=== PATIENT | female | born 1970 | race Caucasian/White ===

== ENCOUNTER 2025-03-29 13:19 | Outpatient (AMB) | payer BC, SELFPAY ==
[2025-03-29 13:35] VITALS: BP 144/80; PULSE 98; RESP 22; TEMP 36.8; O2SAT 98; BMI 20.9
--- NOTE | 2025-03-29 13:35 | AMB.GYNCLNOT ---
Vital Signs 03/29/25 13:35 Height 1.57 m Height Method Stated Weight 51.936 kg Weight Measurement Method Standing Scale BMI 20.9 BP 144/80 H Blood Pressure Source Automatic Cuff Blood Pressure Location Right Upper Arm Position Sitting Respiration 22 H Pulse 98 Pulse Source Monitor Temp 98.2 F Temp Source Oral Pulse Oximetry (%) 98 Oxygen Delivery Method Room Air Allergies/Home Meds Allergies & Medications Allergies No Known Allergies Allergy (Verified 03/29/25 13:36) Medication Reconciliation No Known Home Medications 03/29/25 [History Confirmed 03/29/25] Intake Visit Data Collection New Patient or Established: New Patient (never been to 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 1. Little interest or pleasure in doing things: not at all 2. Feeling down, depressed, or hopeless: not at all Total score: 0 PHQ-9 3. Trouble falling or staying asleep, or sleeping too much: Not at all 4. Feeling tired or having little energy: Not at all 5. Poor appetite or overeating: Not at all 6. Feeling bad about yourself - or that you are a failure or have let yourself or your family down: Not at all 7. Trouble concentrating on things, such as reading the newspaper or watching television: Not at all 8. Moving or speaking so slowly that other people could have noticed? - Or the opposite - being so fidgety or restless that you have been moving around a lot more than usual: not at all 9. Thoughts that you would be better off or of hurting yourself in some way: Not at all Total score: 0 Source: Developed by Drs. Derrell Kaba, Inessa Villareal, Sergei Mckee and colleagues, with an educational daniel from [employer]. Depression screen completed yes Social History Living Situation History Marital Status: Lives With: Family Housing: House Tobacco History Smoking Status: Never smoker Second Hand Smoke Exposure: No Alcohol History Alcohol Intake: Never Domestic Abuse History Do You Feel Safe at Home: Yes Office Procedures OB Clinic LOC & Office Proc's Nursing/Assessment Patient Status: Initial/New Patient OB Clinic Nursing Assessment: Medication Reconciliation, Update PMH in EMR and Vital Signs OB Clinic Coordination of Care: Complex Care and Chronic Disease 1-5, Consent,records obtained, informed consent, Education Simp Pt/Fam, Lab and Imaging orders, Results/Orders obtained and Staff clarify orders Miscellaneous Interventions: Breast Exam and Pelvic/Pap Smear Set up New Patient Charge New Patient Point Assignment: 1154 New Patient Point Charge: [employer] REPLACER Level 4 ([id number]) In Clinic Procedures Pap Smear: Yes Assessment & Plan Diagnosis / Problem List (1) Encounter for Routine Gynecological Examination: Qualifiers: Gynecological examination findings: abnormal findings ABSENT Qualified Code(s): Z01.419 - Encounter for gynecological examination (general) (routine) without abnormal findings (2) Perimenopause: Status: Acute Assessment and Plan: Check FSH and Estradiol now
== END 2025-03-29 14:42 | disposition home or self-care (01) ==
LOC: HODSOBC 13:19
PROVIDERS: Supervising Provider Obstetrics & Gynecology; Visit Provider Obstetrics & Gynecology
DX: Z01.411 Encounter for gynecological examination (general) (routine) with abnormal findings (principal); Z11.51 Encounter for screening for human papillomavirus (HPV); R92.30 Dense breasts, unspecified; N95.1 Menopausal and female climacteric states; R23.2 Flushing; R61 Generalized hyperhidrosis; E78.00 Pure hypercholesterolemia, unspecified; Z97.5 Presence of (intrauterine) contraceptive device; Z88.0 Allergy status to penicillin
CPT/HCPCS: 99204; Q0091; G0463

== ENCOUNTER → 2025-03-29 | Outpatient (CLI) | payer BC, SELFPAY ==
[2025-03-29 16:50] LABS: Follicle Stimulating Hormone 9.05 mIU/mL (See Note)
[2025-04-17 07:09] LABS: Estradiol, Free 4.88 pg/mL; Estradiol, Total 313 pg/mL
== END | disposition home or self-care (01) ==
LOC: COPL 15:12
PROVIDERS: Referring Provider Obstetrics & Gynecology; Visit Provider Obstetrics & Gynecology
DX: N95.1 Menopausal and female climacteric states (principal)
CPT/HCPCS: 36415; 82670; 82681; 83001

== ENCOUNTER 2025-06-07 10:58 | Outpatient (AMB) | payer BC, SELFPAY ==
--- NOTE | 2025-06-07 11:10 | AMB.GYNCLNOT ---
Allergies/Home Meds Allergies & Medications Allergies amoxicillin Allergy (Unknown, Verified 06/07/25 11:11) Hives cephalexin Allergy (Unknown, Verified 06/07/25 11:11) HIVE Medication Reconciliation No Known Home Medications 03/29/25 [History Confirmed 06/07/25] Intake Visit Data Collection New Patient or Established: New Patient (never been to [facility]) Reason for Visit:: LAB RESULTS Seen by Clinical Staff ONLY (RN/MA): No Do You Feel Safe at Home: Yes Authorities Contacted: N/A PCP or OBGYN visit in last 3 months: Yes Date of Last PCP or OBGYN visit: 03/29/25 Hx Now: No Are you currently on any form of Control: Yes (IUD MIRENA) Pain Present Currently: No Pain Scale Used: Lew-Valdes/Numerical Pain scale:: 0 Smoking Status Smoking Status: Never smoker For Telemed visit only Telemed Video/Phone Visit: Yes Verbal consent obtained for Telemed visit?: Yes Verbal Consent witness name: ROSAMARIA BOURNEREZ 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 1. Little interest or pleasure in doing things: not at all 2. Feeling down, depressed, or hopeless: not at all Total score: 0 PHQ-9 3. Trouble falling or staying asleep, or sleeping too much: Not at all 4. Feeling tired or having little energy: Not at all 5. Poor appetite or overeating: Not at all 6. Feeling bad about yourself - or that you are a failure or have let yourself or your family down: Not at all 7. Trouble concentrating on things, such as reading the newspaper or watching television: Not at all 8. Moving or speaking so slowly that other people could have noticed? - Or the opposite - being so fidgety or restless that you have been moving around a lot more than usual: not at all 9. Thoughts that you would be better off or of hurting yourself in some way: Not at all Total score: 0 If you checked off any problems, how difficult have these problems made it for you to do your work, take care of things at home, or get along with other people?: not difficult at all Source: Developed by Drs. Derrell Kaba, Inessa Villareal, Sergei Mckee and colleagues, with an educational daniel from [employer]. Depression screen completed yes Social History Living Situation History Marital Status: Lives With: Family Housing: House Tobacco History Smoking Status: Never smoker Second Hand Smoke Exposure: No Alcohol History Alcohol Intake: Never Domestic Abuse History Do You Feel Safe at Home: Yes History of Present Illness HPI Narrative The patient is a 53-year-old -0-0-[address] it is a Mirena, since 2019. She called to ask about her hormone levels. She has had an FSH of 9 estradiol of 333 I have on I could it is good to have and there her Pap/HPV/ GC /chlamydia testing were all normal from 03/29/2025. Patient denies having hot flashes or night sweats. She wanted to see where she was in her menopausal journey. She has very small bones with a BMI of 20. I recommended a an estrogen patch if the patient starts having hot flashes, night sweats or vaginal dryness. I did recommend weight bearing exercise with calcium and vitamin D to protect her bones as she goes through the menopausal transition. The patient will call with any problems and follow-up yearly or as needed. All questions were answered. Approximate time on the phone 10 minutes. Office Procedures OB Clinic LOC & Office Proc's Nursing/Assessment Patient Status: Established Patient OB Clinic Nursing Assessment: Medication Reconciliation, Update PMH in EMR and Vital Signs OB Clinic Coordination of Care: Complex Care and Chronic Disease 1-5, Consent,records obtained, informed consent, Education Simp Pt/Fam and Staff clarify orders Established Patient Charge Established Patient Point Assignment: 85 Telehealth If patient is seen using Teleconference methods, complete New/Est section, but DO NOT maciej points only maciej the correct Telemed visit type Telemed Phone/Video with patient at home & Dr,PA,RIVETING MACHINE OPERATOR: Yes
== END 2025-06-07 12:57 | disposition home or self-care (01) ==
LOC: HODSOBC 10:58
PROVIDERS: Supervising Provider Obstetrics & Gynecology; Visit Provider Obstetrics & Gynecology
DX: Z71.2 Person consulting for explanation of examination or test findings (principal); Z97.5 Presence of (intrauterine) contraceptive device
CPT/HCPCS: 99212; G0463